=== PATIENT | male | born 1955 | race Two or more races ===

== ENCOUNTER 2022-10-20 17:14 | Inpatient (IN) | payer OTHER ==
[~2022-10-20] VITALS: Ht 177.8 cm; Wt 89.8 kg
[2022-10-20] MEDS ORDERED: ATOR20TA50 PO (21:18)
[2022-10-20] MEDS: SODIUM CHLORIDE 0.9% 1,000 ML IV SCH (21:45)
[2022-10-20] MEDS ORDERED: HYDROcodone-ACET 5/325MG TAB PO PRN (21:45)
[2022-10-20] MEDS ORDERED: SODIUM CHLORIDE 0.9% 1,000 ML IV SCH (21:45)
[2022-10-20] MEDS ORDERED: NITROGLYCERIN 0.4 MG SL TAB SL PRN (21:45)
[2022-10-20] MEDS ORDERED: ONDANSETRON HCL 4 MG/2 ML VIAL IV PRN (21:45)
[2022-10-20] MEDS ORDERED: MORPHINE SULFATE INJ 2 MG/ml SYRG IV PRN (21:45)
[2022-10-20] MEDS ORDERED: ACETAMINOPHEN 500 MG TAB PO PRN (21:45)
[2022-10-20 22:00] VITALS: BP 120/76
[2022-10-20] MEDS ORDERED: ATORVASTATIN 20 MG TAB PO SCH (22:00)
[2022-10-20] MEDS: ATORVASTATIN 20 MG TAB PO SCH (22:00)
[2022-10-20 22:27] LABS: Urine Bacteria NONE SEEN /hpf (None Seen); Urine Blood Negative /uL (Negative); Urine Hyaline Cast FEW /lpf (0 - 2); Urine Mucus FEW (None Seen); Urine Specific Gravity 1.021 (1.001-1.035); Urine WBC 1 /hpf (0 - 3)
[2022-10-21 05:00] VITALS: BP 118/82
[2022-10-21 07:18] LABS: Basophils # (auto) 0.1 10 ^3/uL (0-0.2); Basophils % (auto) 0.8 % (0.0-2.0); Eosinophils # (auto) 0.3 10 ^3/uL (0-0.8); Eosinophils % (auto) 3.2 % (0.0-7.0); Hematocrit 39.2 % (41.0-53.0); Hemoglobin 13.4 g/dL (13.5-17.5); Lymphocytes # (auto) 1.8 10 ^3/uL (0.4-5.4); Lymphocytes % (auto) 18.5 % (10.0-50.0); Mean Corpuscular Hemoglobin 30.7 pg (28.0-32.0); Mean Corpuscular Hgb Conc. 34.1 g/dL (32.0-36.0); Mean Corpuscular Volume 89.8 fL (80.0-100.0); Monocytes % (auto) 10.4 % (0.0-12.0); Neutrophils # (auto) 6.4 10 ^3/uL (1.6-8.6); Neutrophils % (auto) 67.1 % (37.0-80.0); Red Blood Cells 4.37 10^6/uL (4.5-5.90); Red Cell Distribution Width 14.9 % (11.8-14.3); White Blood Cell 9.5 10^3/uL (4.4-10.8)
[2022-10-21 08:16] LABS: Albumin 3.3 g/dL (3.4-5.0); BUN/Creatinine Ratio 12.4; Bilirubin, Total 0.8 mg/dL (0.2-1.0); Calcium 9.3 mg/dL (8.5-10.1); Potassium 3.9 mmol/L (3.5-5.1); Total Protein 6.5 g/dL (6.4-8.2)
[2022-10-21 09:00] VITALS: BP_SYST 106; BP_SYST 108; BP_SYST 115; BP_SYST 117; BP_DIAS 71; BP_DIAS 73; BP_DIAS 76; BP_DIAS 83
[2022-10-21] MEDS ORDERED: SIMV-8 PO (09:50)
[2022-10-21] MEDS ORDERED: OMEP-434 PO (09:52)
[2022-10-21] MEDS ORDERED: CALC500C3 PO (09:52)
[2022-10-21] MEDS: SODIUM CHLORIDE 0.9% 1,000 ML IV SCH ×2 (11:00→20:34)
[2022-10-21 13:00] VITALS: BP 112/66
[2022-10-21 14:15] VITALS: BP_SYST 102; BP_SYST 111; BP_SYST 115; BP_DIAS 69; BP_DIAS 75; BP_DIAS 76
[2022-10-21] MEDS ORDERED: PROMETHAZINE W/CODEINE 5 ML ORAL SYRUP PO PRN (15:45)
[2022-10-21 17:00] VITALS: BP 130/99
[2022-10-21] MEDS: ATORVASTATIN 20 MG TAB PO SCH (21:50)
[2022-10-21] MEDS: FAMOTIDINE 20 MG TAB PO SCH (21:50)
[2022-10-21 22:00] VITALS: BP 118/72
[2022-10-22] MEDS: SODIUM CHLORIDE 0.9% 1,000 ML IV SCH ×2 (03:45→13:45)
[2022-10-22 05:00] VITALS: BP 109/70
[2022-10-22 08:52] VITALS: BP 118/76
[2022-10-22] MEDS: FAMOTIDINE 20 MG TAB PO SCH (10:37)
[2022-10-22 13:28] VITALS: BP 97/63
== END 2022-10-22 15:22 | disposition home or self-care (01) | DRG 312 ==
LOC: WEST WING 19:08 → UNDOADMIN 19:08 → TELE-WESTW 21:32
PROVIDERS: ADMIT Internal Medicine; ATTEND Hospitalist
DX: R55 Syncope and collapse (principal); D72.829 Elevated white blood cell count, unspecified; Z20.822 Contact with and (suspected) exposure to COVID-19; E66.9 Obesity, unspecified; E78.00 Pure hypercholesterolemia, unspecified; F17.200 Nicotine dependence, unspecified, uncomplicated; Z68.28 Body mass index [BMI] 28.0-28.9, adult
CPT/HCPCS: 36415; 70551; 80053; 81001; 83605; 84484; 85025; 87426; 93306; 97163; G0378